=== PATIENT | female | born 1990 | race Two or more races ===

== ENCOUNTER 2021-07-09 21:40 | Emergency (ER) | payer OTHER ==
[~2021-07-09] VITALS: Ht 157.5 cm; Wt 64.4 kg
[2021-07-09] MEDS ORDERED: ATIVAN1 M1 PO (21:45)
[2021-07-09] MEDS ORDERED: ADDERALL 20 MG20 MG PO (21:45)
== END 2021-07-09 23:20 | disposition home or self-care (01) ==
LOC: ER 21:40
DX: S01.01XA Laceration without foreign body of scalp, initial encounter (principal); W45.8XXA Other foreign body or object entering through skin, initial encounter; Y92.018 Other place in single-family (private) house as the place of occurrence of the external cause; Z88.8 Allergy status to other drugs, medicaments and biological substances

== ENCOUNTER 2021-07-16 11:51 | Emergency (ER) | payer OTHER ==
[~2021-07-16] VITALS: Ht 157.5 cm; Wt 63.5 kg
[~2021-07-16 11:51] MED LIST: ADDERALL 20 MG20 MG PO; ATIVAN1 M1 PO
== END 2021-07-16 13:42 | disposition home or self-care (01) ==
LOC: ER 11:51
DX: Z48.02 Encounter for removal of sutures (principal); Z88.8 Allergy status to other drugs, medicaments and biological substances